=== PATIENT | male | born 1945 | race Hispanic/Latino ===

== ENCOUNTER 2018-08-22 03:39 | Inpatient (IN) | payer MEDICARE ==
[~2018-08-22] VITALS: Ht 157.5 cm; Wt 63.6 kg
[~2018-08-22 03:39] MED LIST: AMIODARONE HCL200 MG PO; AMLODIPINE BESYL5 MG PO; ASPIRIN CHEW81 MG PO; ATORVASTATIN CA10 MG PO; BROMFED DM COU118 ML PO; CARAFATE1 GM PO; CARVEDILOL3.125 MG PO; CEPHALEXIN500 MG PO; COLACE100 MG PO; ENOXAPARIN40 MG/0.4 SQ; FERROUS SULFAT325 MG PO; FLAGYL250 MG PO; FUROSEMIDE40 MG PO; GABAPENTIN100 MG PO; GLIMEPIRIDE2 MG PO; GLIMEPIRIDE4 MG PO; HYPROMELLOSE; LANTUS 3ML100 UNITS/ SC; LANTUS100 UNITS/ SQ; LEVAQUIN500 MG PO; LISINOPRIL10 MG PO; LISINOPRIL40 MG PO; LOPRESSOR25 MG PO; LOSARTAN POTASS25 MG PO; METFORMIN HCL1000 MG PO; MIRTAZAPINE15 MG PO; NOVOLIN R100 UNIT/1 SQ; PLAVIX75 MG PO; PREVACID30 MG PO; PROTONIX40 MG/ML PO; potassium chloride PO
[2018-08-22] MEDS ORDERED: ALBUTEROL SULF 0.083% NEB SOLN 3 ML NEB NEB STA (04:05)
[2018-08-22] MEDS ORDERED: IPRATROPIUM BROMIDE 0.02% 2.5 ML NEB NEB ONE (04:15)
[2018-08-22 04:23] LABS: BASOPHILS % 0.2 % (0.0-1.0); EOSINOPHILS % 0.2 % (0.0-6.0); HEMATOCRIT 37.3 % (38.2-49.6); HEMOGLOBIN 12.4 g/dL (14.0-18.0); LYMPHOCYTES # (AUTO) 1.2 (1.0-3.2); LYMPHOCYTES % 13.8 % (18.0-39.1); MEAN CORPUSCULAR HEMOGLOBIN 30.9 pg (28-32); MEAN CORPUSCULAR HGB CONC 33.2 g/dL (31-35); MONOCYTES # (AUTO) 0.8 (0.2-0.8); MONOCYTES % 9.9 % (4.4-11.3); NEUTROPHILS # (AUTO) 6.3 (2.1-6.9); NEUTROPHILS % 75.2 % (38.7-80.0); PLATELET COUNT 191 x10e3/uL (140-360); RED BLOOD COUNT 4.01 x10e6/uL (4.3-5.7); RED CELL DISTRIBUTION WIDTH 11.7 % (11.7-14.4)
[2018-08-22 04:30] LABS: INR 0.93; PARTIAL THROMBOPLASTIN TIME 27.7 seconds (23.8-35.5); PROTHROMBIN TIME 13.3 seconds (11.9-14.5)
[2018-08-22 04:41] LABS: ALBUMIN 3.2 g/dL (3.5-5.0); ALBUMIN/GLOBULIN RATIO 0.9 (0.8-2.0); ANION GAP 14.3 mmol/L (8-16); CALCIUM 8.4 mg/dL (8.4-10.2); CREATININE, SERUM 1.75 mg/dL (0.72-1.25); MAGNESIUM 1.6 MG/DL (1.3-2.1); POTASSIUM 3.3 mmol/L (3.5-5.1)
[2018-08-22 04:48] LABS: CREATINE KINASE MB 5.8 ng/mL (0-5.0)
[2018-08-22 04:51] LABS: B-TYPE NATRIURETIC PEPTIDE2 232.9 pg/mL (0-100)
[2018-08-22] MEDS ORDERED: LEVOFLOXACIN 500MG/D5W 100ML 100 ML IV ONE (05:15)
[2018-08-22] MEDS ORDERED: SODIUM CHLORIDE 0.9% 500ML 500 ML IV ONE (05:15)
--- NOTE | 2018-08-22 05:26 | Diagnostic Imaging Report ---
CHEST SINGLE (PORTABLE), 08/22/2018 4:05 AM Technique: CHEST SINGLE (PORTABLE) Comparison: 04/20/2017, 02/28/2017 Clinical history: Shortness of breath, cough Findings: Single portable AP view of the chest Impression: 1. Stable prominent cardiomediastinal silhouette. 2. Central vascular congestion. Nodular density over the right upper lung which may reflect summation shadow. Recommend follow-up upright PA and lateral. 3. No significant effusion. No pneumothorax. Signed by: Dr Alana Osborne MD on 08/22/2018 5:23 AM
[2018-08-22] MEDS: CEFEPIME HCL 2 GM VIAL IV SCH ×2 (05:45→18:13)
[2018-08-22] MEDS: IPRATROPIUM BROMIDE 0.02% 2.5 ML NEB NEB SCH ×4 (06:00→18:47)
[2018-08-22] MEDS ORDERED: DEXTROSE 50% SYRINGE 50 ML IV PRN (06:00)
[2018-08-22] MEDS ORDERED: ALBUTEROL SULF 0.083% NEB SOLN 3 ML NEB NEB SCH (06:00)
[2018-08-22] MEDS ORDERED: SODIUM CHLORIDE 0.9% 1000ML 1,000 ML IV ONE (06:00)
--- OUTSIDE RECORDS SUMMARY | 2018-08-22 06:16 | XMS REPORT ---
Author Author [facility] Address Unknown Phone Unavailable Care Team Providers Care Drophammer Operator Name Role Phone Sabino SALDIVAR Unavailable Unavailable Problems This patient has no known problems. Allergies, Adverse Reactions, Alerts This patient has no known allergies or adverse reactions. Medications This patient has no known medications. Results Test Description Test Time Test Comments Text Results Atomic Results Result Comments CHEST SINGLE (PORTABLE) 2018-08-22 05:20:00 [place] [address] Patient Name: ANTONELLA BULLARD MR #: [id number] : 1945 Age/Sex: 73/M Req #: [id number] Adm Physician: Ordered by: MANSI SALDIVAR MD Report #: [id number] Location: ER Room/Bed: Procedure: [id number] DX/CHEST SINGLE (PORTABLE) Exam Date: 08/22/18 Exam Time: 0440 REPORT STATUS: Signed CHEST SINGLE (PORTABLE), 08/22/2018 4:05 AM Techn ique: CHEST SINGLE (PORTABLE) Comparison: 04/20/2017, 02/28/2017 Clinical history: Shortness of breath, cough Findings: Single portable AP view of the chest Impression: 1. Stable prominent cardiomediastinal silhouette. 2. Central vascular congestion. Nodular density over the right upper lung which may reflect summation shadow. Recommend follow-up upright PA and lateral. 3. No significant effusion. No pneumothorax. Signed by: Dr Amari Osborne MD on 08/22/2018 5:23 AM Dictated By: AMARI OSBORNE MD 2 Transcribed By: BLADIMIR on 08/22/18522 COPY TO: MANSI SALDIVAR MD
[2018-08-22] MEDS: OSELTAMIVIR PHOSPHATE 75 MG CAP PO SCH ×3 (06:37→18:13)
[2018-08-22 06:42] LABS: CREATINE KINASE MB 5.2 ng/mL (0-5.0)
[2018-08-22] MEDS ORDERED: HUMALOG100 UNIT/1 PO (06:45)
[2018-08-22] MEDS: METHYLPREDNISOLONE SOD SUCC 125 MG/2ML VIAL IV SCH ×3 (07:06→22:27)
[2018-08-22] MEDS: INSULIN LISPRO 100 UNIT/1 ML 3ML VIAL SQ SCH ×4 (08:50→21:58)
[2018-08-22] MEDS ORDERED: SODIUM CHLORIDE 0.9% 1000ML 1,000 ML ONE (10:24)
[2018-08-22] MEDS ORDERED: POTASSIUM CHLORIDE 20 MEQ TAB CR PO ONE (12:30)
[2018-08-22] MEDS: ALBUTEROL/IPRATROPIUM 3 ML NEB NEB SCH ×2 (13:00→19:00)
[2018-08-22 14:14] LABS: CREATINE KINASE MB 5.8 ng/mL (0-5.0)
[2018-08-22 15:30] VITALS: BP 128/61
[2018-08-22] MEDS: SUCRALFATE 1 GM TAB PO SCH ×2 (15:32→21:53)
[2018-08-22 16:02] VITALS: BP 128/61
[2018-08-22 16:17] VITALS: BP 128/61
[2018-08-22] MEDS: GUAIFENESIN 600MG/DEXTROMETHORPHAN 30MG TABSR PO SCH (18:15)
[2018-08-22] MEDS: CARVEDILOL 3.125 MG TAB PO SCH (18:30)
[2018-08-22 19:25] VITALS: BP 129/99
[2018-08-22] MEDS: ATORVASTATIN 10 MG TAB PO SCH (21:53)
[2018-08-22] MEDS: INSULIN DETEMIR 100 UNIT/ML PEN SQ SCH (21:58)
[2018-08-23] VITALS (8 sets, daily range): BP systolic 104–137; BP diastolic 52–70
[2018-08-23] MEDS: ALBUTEROL/IPRATROPIUM 3 ML NEB NEB SCH ×4 (01:24→19:50)
[2018-08-23 04:03] LABS: HEMATOCRIT 36.2 % (38.2-49.6); LYMPHOCYTES # (AUTO) 0.7 (1.0-3.2); LYMPHOCYTES % 7.1 % (18.0-39.1); MEAN CORPUSCULAR HEMOGLOBIN 30.8 pg (28-32); MEAN CORPUSCULAR HGB CONC 33.1 g/dL (31-35); MEAN CORPUSCULAR VOLUME 93.1 fL (81-99); MONOCYTES # (AUTO) 0.5 (0.2-0.8); MONOCYTES % 5.1 % (4.4-11.3); NEUTROPHILS % 87.3 % (38.7-80.0); PLATELET COUNT 199 x10e3/uL (140-360); RED BLOOD COUNT 3.89 x10e6/uL (4.3-5.7); RED CELL DISTRIBUTION WIDTH 11.7 % (11.7-14.4)
[2018-08-23 04:21] LABS: ANION GAP 12.7 mmol/L (8-16); CALCIUM 8.3 mg/dL (8.4-10.2); CREATININE, SERUM 1.49 mg/dL (0.72-1.25); POTASSIUM 3.7 mmol/L (3.5-5.1)
[2018-08-23 04:27] LABS: CREATINE KINASE MB 6.4 ng/mL (0-5.0)
[2018-08-23] MEDS: CEFEPIME HCL 2 GM VIAL IV SCH ×2 (05:02→17:43)
[2018-08-23] MEDS: METHYLPREDNISOLONE SOD SUCC 125 MG/2ML VIAL IV SCH (05:25)
[2018-08-23] MEDS: LEVOFLOXACIN 250MG/D5W 50ML 50 ML IV SCH ×2 (05:41→09:50)
--- NOTE | 2018-08-23 06:43 | Diagnostic Imaging Report ---
CHEST SINGLE (PORTABLE), 08/23/2018 5:00 AM Technique: CHEST SINGLE (PORTABLE) Comparison: Previous day, 02/28/2017 Clinical history: Pneumonia Findings: Single portable AP view of the chest Impression: 1. Stable prominent cardiomediastinal silhouette. 2. Central vascular congestion. Right upper lobe nodular density no longer seen. 3. No significant effusion. No pneumothorax. Signed by: Dr Alana Osborne MD on 08/23/2018 6:39 AM
[2018-08-23] MEDS: IPRATROPIUM BROMIDE 0.02% 2.5 ML NEB NEB SCH ×3 (07:35→18:00)
[2018-08-23] MEDS: PANTOPRAZOLE SOD 40 MG TABEC PO SCH (07:46)
[2018-08-23] MEDS: SUCRALFATE 1 GM TAB PO SCH ×4 (07:46→21:06)
[2018-08-23] MEDS: GLIMEPIRIDE 2 MG TAB PO SCH (07:47)
[2018-08-23] MEDS: GUAIFENESIN 600MG/DEXTROMETHORPHAN 30MG TABSR PO SCH ×2 (07:48→17:43)
[2018-08-23] MEDS: OSELTAMIVIR PHOSPHATE 75 MG CAP PO SCH ×2 (07:48→17:43)
[2018-08-23] MEDS: FUROSEMIDE 40 MG TAB PO SCH (07:48)
[2018-08-23] MEDS: GABAPENTIN 100 MG CAP PO SCH (07:48)
[2018-08-23] MEDS: AMIODARONE HCL 200 MG TAB PO SCH (07:48)
[2018-08-23] MEDS: CARVEDILOL 3.125 MG TAB PO SCH ×2 (08:05→17:43)
[2018-08-23] MEDS: INSULIN LISPRO 100 UNIT/1 ML 3ML VIAL SQ SCH ×4 (08:05→22:01)
[2018-08-23] MEDS: LOSARTAN POTASSIUM 25 MG TAB PO SCH (08:10)
[2018-08-23] MEDS ORDERED: MIRTAZAPINE 15 MG TAB PO SCH ×2 (09:00→21:00)
[2018-08-23] MEDS ORDERED: FUROSEMIDE INJ 10 MG/ML 2 ML VIAL IV ONE (09:30)
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
[2018-08-23] MEDS: OYST-CAL-D 500MG TABLET PO SCH (17:43)
[2018-08-23] MEDS: ATORVASTATIN 10 MG TAB PO SCH (21:06)
[2018-08-23] MEDS: METHYLPREDNISOLONE SOD SUCC 40 MG/ML VIAL IV SCH (21:06)
[2018-08-23] MEDS: INSULIN DETEMIR 100 UNIT/ML PEN SQ SCH (22:01)
[2018-08-24 00:15] VITALS: BP 121/64
[2018-08-24] MEDS: ALBUTEROL/IPRATROPIUM 3 ML NEB NEB SCH ×2 (00:40→07:48)
[2018-08-24 05:02] LABS: BASOPHILS % 0.1 % (0.0-1.0); HEMATOCRIT 36.4 % (38.2-49.6); LYMPHOCYTES # (AUTO) 0.6 (1.0-3.2); LYMPHOCYTES % 5.1 % (18.0-39.1); MEAN CORPUSCULAR HEMOGLOBIN 30.7 pg (28-32); MEAN CORPUSCULAR VOLUME 93.1 fL (81-99); MONOCYTES # (AUTO) 0.4 (0.2-0.8); NEUTROPHILS # (AUTO) 9.7 (2.1-6.9); NEUTROPHILS % 90.2 % (38.7-80.0); PLATELET COUNT 203 x10e3/uL (140-360); RED BLOOD COUNT 3.91 x10e6/uL (4.3-5.7); RED CELL DISTRIBUTION WIDTH 11.8 % (11.7-14.4)
[2018-08-24 05:03] VITALS: BP 123/68
[2018-08-24 05:11] LABS: ANION GAP 12.3 mmol/L (8-16); CALCIUM 8.1 mg/dL (8.4-10.2); CREATININE, SERUM 1.71 mg/dL (0.72-1.25); MAGNESIUM 2.1 MG/DL (1.3-2.1); POTASSIUM 3.3 mmol/L (3.5-5.1)
[2018-08-24] MEDS: CEFEPIME HCL 2 GM VIAL IV SCH (05:13)
[2018-08-24] MEDS: SUCRALFATE 1 GM TAB PO SCH (07:42)
[2018-08-24] MEDS: PANTOPRAZOLE SOD 40 MG TABEC PO SCH (07:42)
[2018-08-24] MEDS: IPRATROPIUM BROMIDE 0.02% 2.5 ML NEB NEB SCH ×2 (07:48)
[2018-08-24] MEDS: CARVEDILOL 3.125 MG TAB PO SCH (07:51)
[2018-08-24] MEDS ORDERED: LEVAQUIN500 MG PO (08:09)
[2018-08-24] MEDS ORDERED: MUCINEX DM ER1 EACH PO (08:09)
[2018-08-24] MEDS ORDERED: PREDNISONE20 MG PO (08:09)
[2018-08-24] MEDS ORDERED: Calcium Carbonate PO (08:09)
[2018-08-24] MEDS ORDERED: TAMIFLU75 MG PO (08:09)
[2018-08-24] MEDS ORDERED: FUROSEMIDE INJ 10 MG/ML 2 ML VIAL IV ONE (08:30)
[2018-08-24] MEDS ORDERED: POTASSIUM CHLORIDE 20 MEQ TAB CR PO ONE (08:30)
[2018-08-24] MEDS: INSULIN LISPRO 100 UNIT/1 ML 3ML VIAL SQ SCH (08:40)
[2018-08-24] MEDS: OSELTAMIVIR PHOSPHATE 75 MG CAP PO SCH (08:46)
[2018-08-24] MEDS: METHYLPREDNISOLONE SOD SUCC 40 MG/ML VIAL IV SCH (08:46)
[2018-08-24] MEDS: GUAIFENESIN 600MG/DEXTROMETHORPHAN 30MG TABSR PO SCH (08:46)
[2018-08-24] MEDS: GABAPENTIN 100 MG CAP PO SCH (08:46)
[2018-08-24] MEDS: FUROSEMIDE 40 MG TAB PO SCH (08:46)
[2018-08-24] MEDS: OYST-CAL-D 500MG TABLET PO SCH (08:46)
[2018-08-24] MEDS: GLIMEPIRIDE 2 MG TAB PO SCH (08:46)
[2018-08-24] MEDS: AMIODARONE HCL 200 MG TAB PO SCH (08:46)
[2018-08-24] MEDS: LEVOFLOXACIN 250MG/D5W 50ML 50 ML IV SCH (08:48)
[2018-08-24] MEDS: LOSARTAN POTASSIUM 25 MG TAB PO SCH (08:56)
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
== END 2018-08-24 10:56 | disposition home or self-care (01) | DRG 193 ==
LOC: ER 03:39 → ERHOLD 06:12 → IMCU 15:01
PROVIDERS: ADMIT Internal Medicine; ATTEND Internal Medicine
DX: J18.9 Pneumonia, unspecified organism (principal); I50.23 Acute on chronic systolic (congestive) heart failure; I13.0 Hypertensive heart and chronic kidney disease with heart failure and stage 1 through stage 4 chronic kidney disease, or unspecified chronic kidney disease; I69.354 Hemiplegia and hemiparesis following cerebral infarction affecting left non-dominant side; L97.429 Non-pressure chronic ulcer of left heel and midfoot with unspecified severity; E11.22 Type 2 diabetes mellitus with diabetic chronic kidney disease; N18.3 Chronic kidney disease, stage 3 (moderate); Z79.4 Long term (current) use of insulin; I48.0 Paroxysmal atrial fibrillation; Z79.01 Long term (current) use of anticoagulants; I25.2 Old myocardial infarction; E78.5 Hyperlipidemia, unspecified; K27.9 Peptic ulcer, site unspecified, unspecified as acute or chronic, without hemorrhage or perforation; E83.51 Hypocalcemia; J11.1 Influenza due to unidentified influenza virus with other respiratory manifestations; R09.02 Hypoxemia
CPT/HCPCS: 36415; 36600; 71045; 80048; 80053; 82550; 82553; 82948; 83605; 83735; 83880; 84484; 85025; 85610; 85730; 87040; 87086; 87400; 93005; 93306; 94640; 96360; 96372; 99285; J0692; J1940; J1956; J2920; J2930; J7030; J7040